=== PATIENT | male | born 1995 | race Caucasian/White ===

== ENCOUNTER 2021-03-31 20:09 | Emergency (ER) | payer SELFPAY ==
[~2021-03-31] VITALS: Ht 167.6 cm; Wt 68.0 kg
[2021-03-31 22:44] VITALS: BP 140/98
== END 2021-03-31 22:47 | disposition home or self-care (01) ==
LOC: ER 20:09
DX: F19.10 Other psychoactive substance abuse, uncomplicated (principal); I49.9 Cardiac arrhythmia, unspecified
CPT/HCPCS: 93005; 99283